=== PATIENT | male | born 2005 | race Caucasian/White ===

== ENCOUNTER 2023-09-26 02:30 | Observation (INO) | payer OTHER ==
[2023-09-26] MEDS: SODIUM CHLORIDE 0.9% 500 ML INFUS.BAG IV ONE (02:56)
[2023-09-26 03:38] LABS: BASO % 0.5 % (0-2.0); EOS % 1.3 % (0-4.5); HEMATOCRIT 42.8 % (35.4-49); HEMOGLOBIN 14.9 GM/dL (11.7-16.9); LYMPH % 38.4 % (8-40); MCH 31.6 pg (25.7-33.7); MCHC 34.7 g/dl (32.0-35.9); MEAN CELL VOLUME 91.2 fl (80-96); MEAN PLT VOLUME 6.7 fl (7.5-11.1); MONO % 8.8 % (3.8-10.2); PLATELET COUNT 307 10^3/uL (134-434); RDW 12.4 % (11.9-15.9); WHITE BLOOD COUNT 6.4 K/mm3 (4.0-10.0)
[2023-09-26 03:55] LABS: METHADONE, UR NEGATIVE (NEGATIVE)
[2023-09-26 03:56] LABS: COCAINE, UR NEGATIVE (NEGATIVE); OPIATES, URI NEGATIVE (NEGATIVE); URINE AMPHETAMINES NEGATIVE (NEGATIVE); URINE BENZODIAZEPINES NEGATIVE (NEGATIVE)
[2023-09-26 04:02] LABS: PHENCYCLIDINE,URINE NEGATIVE (NEGATIVE); URINE BARBITURATES NEGATIVE (NEGATIVE)
[2023-09-26 04:03] LABS: POTASSIUM 4.2 mmol/L (3.5-5.1)
[2023-09-26 04:05] LABS: CALCIUM 9.1 mg/dL (8.5-10.1)
[2023-09-26 04:06] LABS: ALBUMIN 4.2 g/dl (3.4-5.0); BLOOD UREA NITROGEN 21.8 mg/dL (7-18)
[2023-09-26 04:09] LABS: CREATININE 1.1 mg/dL (0.55-1.3)
[2023-09-26 04:10] LABS: BILIRUBIN,TOTAL 0.4 mg/dL (0.2-1); TOT PROT 7.5 g/dl (6.4-8.2)
[2023-09-26] MEDS ORDERED: ACETAMINOPHEN 325 MG TABLET (FP) PO PRN (09:33)
[2023-09-26] MEDS ORDERED: THIAMINE HCL 200 MG/2 ML VIAL IM SCH (10:00)
[2023-09-26 12:17] VITALS: BMI 24.7
[2023-09-26] MEDS: FOLIC ACID INJECTION - 1 MG, THIAMINE HCL 100 MG, MULTIVIT INJECTION ADULT 10 ML in SOD... IVPB ONE (13:03)
[2023-09-26 15:43] VITALS: RESP 18
[2023-09-26 18:19] VITALS: BP 116/67; PULSE 81; TEMP 97.7
[2023-09-27] MEDS ORDERED: FOLIC ACID 1 MG TABLET (FP) PO SCH (06:00)
[2023-09-27] MEDS ORDERED: THIAMINE HCL 100 MG TABLET (FP) PO SCH (10:00)
== END 2023-09-26 18:38 | disposition home or self-care (01) ==
LOC: JER 02:30 → JERBED 05:49 → J4W 11:08
PROVIDERS: ADMIT Internal Medicine; ATTEND Internal Medicine
PROC: 3E033GC Introduction of Other Therapeutic Substance into Peripheral Vein, Percutaneous Approach (ICD-10-PCS; principal; 2023-09-26)
DX: F10.10 Alcohol abuse, uncomplicated (principal); R94.31 Abnormal electrocardiogram [ECG] [EKG]; R55 Syncope and collapse
CPT/HCPCS: 36415; 70450-TC; 80053; 80307; 84484; 85025; 93005; 93010; 99285-25; G0378